=== PATIENT | male | born 1980 | race Two or more races ===

== ENCOUNTER 2017-02-14 08:31 | Emergency (ER) | payer MEDICAID, OTHER ==
[~2017-02-14] VITALS: Ht 175.3 cm; Wt 71.0 kg
[~2017-02-14 08:31] MED LIST: [UNRECOGNIZED DRUG - CODE]
[2017-02-14 08:44] VITALS: BP 127/69
[2017-02-14] MEDS ORDERED: KETOROLAC 60MG/2ML VIAL IM ONE (11:00)
== END 2017-02-14 12:01 | disposition home or self-care (01) ==
LOC: ER 11:10
DX: M25.551 Pain in right hip (principal); G40.909 Epilepsy, unspecified, not intractable, without status epilepticus; M54.16 Radiculopathy, lumbar region; F17.200 Nicotine dependence, unspecified, uncomplicated; F12.10 Cannabis abuse, uncomplicated
CPT/HCPCS: 96372; 99283; J1885

== ENCOUNTER 2017-11-11 09:40 | Emergency (ER) | payer MEDICAID ==
[~2017-11-11] VITALS: Ht 167.6 cm; Wt 79.0 kg
[~2017-11-11 09:40] MED LIST changes: +TEGXR2; -[UNRECOGNIZED DRUG - CODE]
[2017-11-11] MEDS ORDERED: LORAZEPAM 2MG/ML CPJ IM STA (10:32)
[2017-11-11 10:37] LABS: BASOPHILS % 0.4 % (0.0-2.0); EOSINOPHILS % 0.1 % (0.0-5.0); HEMATOCRIT. 43.6 % (42.0-52.0); HEMOGLOBIN. 14.2 g/dL (14.0-18.0); LYMPHOCYTES % 8.3 % (20.0-50.0); MEAN CORPUSCULAR HEMOGLOBIN 29.2 pg (28.0-32.0); MEAN CORPUSCULAR VOLUME 89.9 fL (80.0-94.0); MEAN PLATELET VOLUME 7.2 fl (7.4-10.4); MONOCYTES % 5.4 % (2.0-8.0); NEUTROPHILS % 85.8 % (40.0-76.0); PLATELET 233 x1000/uL (130-400); RED BLOOD CELL COUNT 4.85 mill/uL (4.7-6.1); RED CELL DISTRIBUTION WIDTH 14.3 % (11.6-14.6)
[2017-11-11] MEDS ORDERED: LORAZEPAM 2MG/ML CPJ ONE (10:41)
[2017-11-11] MEDS ORDERED: CARBAMAZEPINE 100MG TABLET CHEW PO ONE (10:45)
[2017-11-11 10:53] LABS: CHLORIDE 105 mEq/L (98-107); ETHANOL BLOOD < 10 mg/dL
[2017-11-11 10:54] LABS: CARBAMAZEPINE 3.2 ug/mL (4-12)
[2017-11-11 10:58] LABS: PHENOBARBITAL < 2.1 ug/mL (15.0-40.0)
[2017-11-11 10:59] LABS: VALPROIC ACID < 3.0 ug/mL (50-100)
[2017-11-11 12:07] VITALS: BP 154/86
== END 2017-11-11 14:30 | disposition home or self-care (01) ==
LOC: ER 09:42
DX: G40.909 Epilepsy, unspecified, not intractable, without status epilepticus (principal); F12.10 Cannabis abuse, uncomplicated
CPT/HCPCS: 36415; 80053; 80156; 80165; 80184; 80185; 85025; 99284; G0482; J2060

== ENCOUNTER 2021-04-15 02:29 | Emergency (ER) | payer MEDICAID ==
[~2021-04-15] VITALS: Ht 167.6 cm; Wt 73.0 kg
[2021-04-15] MEDS ORDERED: LORAZEPAM 2MG/ML CPJ IV ONE (03:00)
[2021-04-15 03:11] LABS: BASOPHILS % 0.6 % (0.0-2.0); EOSINOPHILS % 0.6 % (0.0-5.0); HEMATOCRIT. 47.3 % (42.0-52.0); LYMPHOCYTES % 16.2 % (20.0-50.0); MEAN CORPUSCULAR HEMOGLOBIN 29.7 pg (28.0-32.0); MEAN CORPUSCULAR VOLUME 93.6 fL (80.0-94.0); MEAN PLATELET VOLUME 7.5 fl (7.4-10.4); MONOCYTES % 5.5 % (2.0-8.0); NEUTROPHILS % 77.1 % (40.0-76.0); PLATELET 265 x1000/uL (130-400); RED BLOOD CELL COUNT 5.06 mill/uL (4.7-6.1); RED CELL DISTRIBUTION WIDTH 14.9 % (11.6-14.6)
[2021-04-15 03:18] LABS: CHLORIDE 104 mEq/L (98-107)
[2021-04-15 03:24] LABS: ETHANOL BLOOD < 10 mg/dL
[2021-04-15 04:15] LABS: HEMATOCRIT 45.7 % (42.0-52.0); HEMOGLOBIN 15.4 g/dL (14.0-18.0); MEAN CORPUSCULAR HEMOGLOBIN 30.4 pg (28.0-32.0); MEAN CORPUSCULAR VOLUME 90.2 fL (80.0-94.0); PLATELET 251 x1000/uL (130-400); RED BLOOD CELL COUNT 5.07 mill/uL (4.7-6.1); RED CELL DISTRIBUTION WIDTH 14.3 % (11.6-14.6)
[2021-04-15 04:26] LABS: CHLORIDE 106 mEq/L (98-107)
[2021-04-15 04:51] VITALS: BP 123/80
[2021-04-15 05:24] LABS: CLARITY URINE CLEAR (CLEAR); COLOR URINE YELLOW (YELLOW); KETONES URINE NEGATIVE (NEGATIVE); LEUKOCYTE ESTERASE URINE NEGATIVE (NEGATIVE); NITRITE URINE NEGATIVE (NEGATIVE); OCCULT BLOOD URINE TRACE (NEGATIVE); PROTEIN URINE 1+ (NEGATIVE); SPECIFIC GRAVITY URINE 1.014 (1.005-1.030); UROBILINOGEN URINE 0.2 E.U./dL (0.2-1.0)
[2021-04-15 05:34] LABS: *AMPHETAMINES SCREEN URINE NEGATIVE (NEGATIVE); *BARBITURATES SCREEN URINE NEGATIVE (NEGATIVE); CANNABINOID URINE SCREEN PRESUMTIVE POSITIVE (NEGATIVE); METHADONE URINE SCREEN NEGATIVE (NEGATIVE); OPIATES URINE SCREEN NEGATIVE (NEGATIVE); PHENCYCLIDINE URINE SCREEN NEGATIVE (NEGATIVE)
[2021-04-15 05:35] LABS: *BENZODIAZEPINES SCREEN URINE PRESUMTIVE POSITIVE (NEGATIVE); *COCAINE SCREEN URINE NEGATIVE (NEGATIVE)
== END 2021-04-15 05:13 | disposition home or self-care (01) ==
LOC: ER 02:42
DX: G40.909 Epilepsy, unspecified, not intractable, without status epilepticus (principal); F12.10 Cannabis abuse, uncomplicated; D72.829 Elevated white blood cell count, unspecified; Z72.89 Other problems related to lifestyle
CPT/HCPCS: 36415; 70450; 80053; 80305; 80320; 81003; 82962; 85025; 85027; 96374; 99284; J2060; G0480